=== PATIENT | female | born 1960 | race Caucasian/White ===

== ENCOUNTER 2025-06-06 13:37 | Outpatient (AMB) | payer BC, SELFPAY ==
--- OUTSIDE RECORDS SUMMARY | 2025-06-06 16:41 | XMS_ITS | Patient Health Record ---
Author Organization [facility] Address [address] [place] [address] Care Team Providers Care Computer Programming Supervisor Name Role Phone Fawn Michel Primary Care Provid er Unavailable Black Zuleyma Unavailable [phone] Allergies No Known Allergies Reason For Referral No Information Medications Medication SIG (Take, Route, Frequency, Duration) Notes Start Date End Date Status Diclofenac Sodium 1 % as directed Transd ermal Four times a day; Duration: 30 days 08/07/2019 Active Pneumatic Compression Boot 30mm Hg as directed over swollen feet and legs as directed; Duration: . 04/14/2018 Active Norethindrone Active Ciclopirox Olamine 0.77 % 1 application to affected area Externally Twice a day; Duration: 30 days 04/26/2017 Active Physical Therapy 3-4x per week for 3- 4 weeks 04/12/2017 Active Ciclopirox Olamine 0.77% external Apply to effected areas twice a day; Duration: 30 Active Diflucan 150 MG 1 tablet Orally Once a day; Duration: 1 dose 09/17/2017 Not-Taking Urea 40 % 1 application to affected area on feet Externally Twice a day; Duration: 30 Active Keflex 500 MG 1 capsule Orally danitza ry 12 hrs; Duration: 10 day(s) 09/17/2017 Not-Taking Estradiol Active Gabapentin 300 MG 1 capsule Orally Thr ee times a day; Duration: 14 days 02/15/2017 Not-Taking Levothyroxine Sodium Active Ibuprofen 600 MG 1 tablet Orally Thre e times a day; Duration: 14 days 02/15/2017 Not-Taking Keflex 500 MG 1 capsule Orally danitza ry 12 hrs; Duration: 10 day(s) 05/18/2018 Not-Taking Diflucan 150 MG 1 tablet Orally Once a day; Duration: 1 dose 05/18/2018 Not-Taking Social History Tobacco Use: Social History Observation Description Date Details (start date - stop date) Former Smoker NA - NA Tobacco Use/Smoking Question Answer Notes Are you a: former smoker How long has it been since you last smoked? < 1 month Additional Findings: Tobacco Non-User Current no n-smoker Alcohol Screen Question Answer Notes Did you have a drink containing alcohol in the p ast year? Yes Points 0 Interpretation Negative Tobacco use other than smoking: Question Answer Notes Are you an other tobacco user? 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 skin (L97.511) Active confirmed Problem Acquired hammer toe of right foot (9072774906616358) Other hammer toe(s) (acquired), right foot (M20.41) Active confirmed Problem Acquired hammer toe of left foot (0979361977312783) Other hammer toe(s) (acquired), left foot (M20.42) Active confirmed Plan Of Treatment Pending Test Test Name Order Date *Wound Culture 05/18/2018 X ray : Foot, right 3V 12/27/2018 X ray : Foot, right 3V 04/26/2017 [id number] NAIL, 6 OR MORE 01/14/2022 [id number] 11/05/2017 [id number] 09/17/2017 07068- Debride <25 sq cm 10/19/2017 78954- Debride <25 sq cm 11/05/2017 20348- Debride <25 sq cm 01/12/2018 [id number] SKIN/TISSUE 10/05/2017 [id number] SKIN/TISSUE 11/26/2017 [id number] SKIN/TISSUE 12/14/2017 Insurance Providers Payer Name Payer Address Payer Phone Subscriber Number Group Number Insured Name Patient Relationship to Insured Coverage Start Date Coverage End Date [facility] [address] [place] [address] [id number] Vanna Rojas Self - patient is the insured Medical (General) History Medical History History ICD Code Sciatica M54.30 Thyroiditis, unspecified E06.9 Mumps B26.9 Surgical History Surgery Date(Month/Year) tubal ligation tumor removal Devi bunionectomy 03/10/2017 Devi L 04/06/2018
--- OUTSIDE RECORDS SUMMARY | 2025-06-06 16:41 | XMS_ITS | Clinical Summary ---
Author Organization [facility] Address [address] [place] [address] Phone Care Team Providers Care Agriculture Technician Name Role Phone Fawn Ohara DO Primary Care Pro vider Allergies No known active allergies Medications levothyroxine (SYNTHROID, LEVOTHROID) 75 mcg tablet Take by mouth 1 (one) time each day before breakfast. Active estradioL (ESTRACE) 1 mg tablet Take 1 tablet (1 mg total) by mouth 1 (one) time each day. Active norethindrone (AYGESTIN) 5 mg tablet Take 2 tablets (10 mg total) by mouth every 3 (three) months. Active ibuprofen (ADVIL,MOTRIN) 600 mg tablet Take 1 tablet (600 mg total) by mouth. 01/30/2015 Active naproxen (NAPROSYN) 500 mg tablet Take 1 tablet (500 mg total) by mouth 2 (two) times a day with meals. 07/22/2015 Active Active Problems No known active problems Resolved Problems Problem Noted Date Diagnosed Date Resolved Date Other specified noninflammat ory disorders of vulva and perineum 08/23/2024 08/23/2024 Surgical History Surgery Date Site/Laterality Comments TUBAL LIGATION TUMOR REMOVAL Left LEG ENDOMETRIAL ABLATION Medical History Medical History Date Comments PONV (postoperative nausea and vomiting) Hypothyroidism Diverticulosis Lesion of vulva Social History Tobacco Use Types Packs/Day Years Used Date Smoking Tobacco: Never Passive Smoke Exposure: Never Smokeless Tobacco: Never Tobacco Cessation:Counseling Given: Not Answered Alcohol Use Standard Drinks/Week Comments Never 0 (1 standard drink = 0.6 oz pur e alcohol) Comments No Sex and Gender Information Value Date Recorded Sex Assigned at Female 08/23/2024 6:23 AM EST Legal Sex Female 10:30 PM EST Gender Identity Female 08/23/2024 6:23 AM EST Sexual Orientation Straight 08/23/2024 6: 23 AM EST Obstetrics History Last Filed Vital Signs Vital Sign Reading Time Taken Comments Blood Pressure 125/63 08/23/2024 9:03 AM EST Pulse 75 08/23/2024 9:03 AM EST Temperature 36.6 C (97.9 F) 08/23/2024 9:03 AM EST Respiratory Rate 16 08/23/2024 9:03 AM EST Oxygen Saturation 100% 08/23/2024 9:03 AM EST Inhaled Oxygen Concentration - - Weight 59 kg (130 lb) 08/15/2024 11:00 AM EST Height 157.5 cm (5' 2 ) 08/15/2024 11:00 AM EST Body Mass Index 23.78 08/15/2024 11:00 AM EST Plan of Treatment Health Maintenance Due Date Last Done Comments Breast Cancer Screening 1960 DTaP,Tdap,and Td Vaccines (1 - Tdap) 1981 Cervical Cancer Screening: P ap Smear 12/16/1983 Pneumococcal Vaccine: 50+ Ye ars (1 of 1 - PCV) 2012 Zoster Vaccines (2 of 2) 11/20/2021 09/25/2021 Colorectal Cancer Screening: Colonoscopy 08/30/2022 HIV Screening 08/30/2022 Hepatitis C Screening 08/30/2022 Social Influencers of Health Screening 08/30/2022 Depression Screening 09/27/2024 COVID-19 Vaccine ( - 2023-2 5 season) 2025 Influenza Vaccine (#1) 2025 RSV Immunization Adult Patie nts (1 - 1-dose 75+ series) 2037 HIB Vaccines Aged Out No longer eligi ble based on patient's age to complete this topic HPV Vaccines Aged Out No longer eligi ble based on patient's age to complete this topic Hepatitis A Vaccines Aged Out No long er eligible based on patient's age to complete this topic Hepatitis B Vaccines Aged Out No long er eligible based on patient's age to complete this topic IPV Vaccines Aged Out No longer eligi ble based on patient's age to complete this topic MMR Vaccines Aged Out No longer eligi ble based on patient's age to complete this topic Meningococcal ACWY Vaccine Aged Out N o longer eligible based on patient's age to complete this topic Meningococcal B Vaccine Aged Out No l onger eligible based on patient's age to complete this topic RSV Immunization Patients Un thu 20 months Aged Out No longer eligible b ased on patient's age to complete this topic Varicella Vaccines Aged Out No longer eligible based on patient's age to complete this topic Insurance Care Teams Agriculture Technician Relationship Specialty Start Date End Date Fawn Ohara DO [facility] [address] [place] [phone] PCP - General Internal Medicine 08/23/24
--- OUTSIDE RECORDS SUMMARY | 2025-06-06 16:41 | XMS_ITS | Clinical Summary ---
Author Organization [facility] Address [address] [place] [address] Phone Care Team Providers Care Finished Cloth Examiner Name Role Phone Pcp, Unknown Primary Care Provider Unavailabl e Social History Tobacco Use Types Packs/Day Years Used Date Smoking Tobacco: Never Assessed Comments Unknown Sex and Gender Information Value Date Recorded Sex Assigned at Not on file Legal Sex Female 11:27 AM EST Gender Identity Not on file Sexual Orientation Not on file Plan of Treatment Not on file Medical Devices Not on file Insurance [facility] Care Teams Finished Cloth Examiner Relationship Specialty Start Date End Date Pcp, Unknown PCP - General 08/30/23 Additional Source Comments The information contained in this document represents components of the legal health record. It is not the complete legal health record.[facility]
== END 2025-06-06 13:42 | disposition home or self-care (01) ==
LOC: HO.HMGAL 13:37
PROVIDERS: PCP Internal Medicine Pulmonary Disease; Visit Provider Registered Nurse Emergency
DX: J30.89 Other allergic rhinitis (principal)
CPT/HCPCS: 95117; 95165

== ENCOUNTER 2025-07-23 13:19 | Outpatient (AMB) | payer BC, SELFPAY ==
--- OUTSIDE RECORDS SUMMARY | 2025-07-23 16:53 | XMS_ITS | Clinical Summary ---
Author Organization [facility] Address [address] [place] [address] Phone Care Team Providers Care Chlorine Plant Operator Name Role Phone Fawn Ohara DO Primary [...] Last Done Comments Breast Cancer Screening 1960 Colorectal Cancer Screening: Colonoscopy 1962 DTaP,Tdap,and Td Vaccines (1 - Tdap) 1981 Cervical Cancer Screening: P ap Smear 12/16/1983 Pneumococcal Vaccine: 50+ Ye ars (1 of 1 - PCV) 2012 Zoster Vaccines (2 of 2) 11/20/2021 09/25/2021 HIV Screening 08/30/2022 Hepatitis C Screening 08/30/2022 Social Influencers of Health Screening 08/30/2022 Depression Screening 09/27/2024 COVID-19 Vaccine (1 - 2023-2 5 season) 2025 Influenza Vaccine [...] to complete this topic Insurance Care Teams Chlorine Plant Operator Relationship Specialty Start Date End Date Fawn Ohara DO [address] [address] PCP - General Internal Medicine 08/23/24
--- OUTSIDE RECORDS SUMMARY | 2025-07-23 16:53 | XMS_ITS | Patient Health Record ---
Author Organization [facility] Address [address] [place] [address] Care Team Providers Care Field Artillery Targeting Technician Name Role Phone Fawn Michel Primary Care Provid er Unavailable Black Zuleyma Unavailable [phone] Allergies No Known Allergies Reason For Referral [...] Status Risk Notes Problem Acquired hallux valgus (35822026) Hallux valgus (acquired), left foot (M20.12) Active confirmed Problem Localized, primary osteoarthritis of the ankle and/or foot (202482276) Primary osteoarthriti s, right ankle and foot (M19.071) Active confirmed Problem Localized, primary osteoarthritis of the ankle and/or foot (116892967) Primary osteoarthriti s, left ankle and foot (M19.072) Active confirmed Problem Non-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 to breakdown of skin (L97.511) Active confirmed Problem Acquired hammer toe of right foot (9724575279431444) Other hammer toe(s) (acquired), right foot (M20.41) Active confirmed Problem Acquired hammer toe of left foot (8547812101174278) Other hammer toe(s) (acquired), left foot (M20.42) Active confirmed Plan Of Treatment Pending Test Test Name Order Date *Wound Culture 05/18/2018 X ray : Foot, right 3V 12/27/2018 X ray : Foot, right 3V 04/26/2017 [id number] NAIL, 6 OR MORE 01/14/2022 [id number] 11/05/2017 [id number] 09/17/2017 24588- Debride <25 sq cm 10/19/2017 98634- Debride <25 sq cm 11/05/2017 94333- Debride <25 sq cm 01/12/2018 [id number] SKIN/TISSUE 10/05/2017 [id number] SKIN/TISSUE 11/26/2017 [id number] SKIN/TISSUE 12/14/2017 Insurance Providers Payer Name Payer Address Payer Phone Subscriber Number Group Number Insured Name Patient Relationship to Insured Coverage Start Date Coverage End Date [facility] [address] [place] [address] [id number] Vanna Rojas Self - patient is the insured Medical (General) History Medical History History ICD Code Sciatica M54.30 Thyroiditis, unspecified E06.9 Mumps B26.9 Surgical History Surgery Date(Month/Year) tubal ligation tumor removal Devi bunionectomy 03/10/2017 Devi L 04/06/2018
== END 2025-07-23 13:20 | disposition home or self-care (01) ==
LOC: HO.HMGAL 13:19
PROVIDERS: PCP Internal Medicine Pulmonary Disease; Visit Provider Registered Nurse Emergency
DX: J30.89 Other allergic rhinitis (principal)
CPT/HCPCS: 95117; 95165